=== PATIENT | female | born 1985 | race African-American/Black ===

== ENCOUNTER 2023-12-27 13:48 | Inpatient (IN) | payer MEDICAID, OTHER ==
[~2023-12-27] VITALS: Ht 160 cm; Wt 60.0 kg
[~2023-12-27 13:48] MED LIST: NOCURR
[2023-12-27 15:13] LABS: COVID AG,FIA SOURCE NASAL SWAB
[2023-12-27 15:20] LABS: BASOPHILS % (AUTO) 0.5 % (0.0-2.0); EOSINOPHILS % (AUTO) 1.1 % (1.0-6.0); HEMATOCRIT 37.3 % (36-46); HEMOGLOBIN 12.1 g/dL (12.0-16.0); LYMPHOCYTES # (AUTO) 1.5 K/uL (1.0-4.8); LYMPHOCYTES % (AUTO) 22.6 % (22.0-44.0); MEAN CORPUSCULAR HEMOGLOBIN 28.1 pg (26.0-34.0); MEAN CORPUSCULAR HGB CONC 32.5 G/dL (31.0-37.0); MEAN CORPUSCULAR VOLUME 87 fL (80-100); MONOCYTES # (AUTO) 0.3 K/uL (0.1-1.0); MONOCYTES % (AUTO) 5.3 % (2.0-9.0); NEUTROPHILS # (AUTO) 4.6 K/uL (1.8-7.7); NEUTROPHILS % (AUTO) 70.5 % (40.0-70.0); PLATELET COUNT (AUTO) 281 K/uL (150-450); RED BLOOD CELL COUNT(AUTO) 4.31 MIL/uL (4.00-5.20); WHITE BLOOD COUNT (AUTO) 6.6 K/uL (4.5-11.0)
[2023-12-27 15:30] LABS: ANION GAP 9 mmol/L (8-16); CARBON DIOXIDE 24 mmol/L (22-29); CHLORIDE 104 mmol/L (98-107); CREATININE 0.79 mg/dL (0.60-1.30); GLOMERULAR FILTR. RATE CALC > 60 mL/min (>60); GLUCOSE,RANDOM 101 mg/dL (70-110); POTASSIUM 3.8 mmol/L (3.5-5.1); SODIUM SERUM 137 mmol/L (136-145); UREA NITROGEN, BLOOD 11 mg/dL (7-18)
[2023-12-27 15:35] LABS: ALCOHOL, BLOOD (SERUM) < 3 mg/dL (0-10)
[2023-12-27 15:36] LABS: ALANINE AMINOTRANSFERASE 15 U/L (12-78); ALBUMIN 3.7 g/dL (3.4-5.0); ALKALINE PHOSPHATASE 56 U/L (46-116); ASPARTATE AMINOTRANSFERASE 15 U/L (15-37); TOTAL PROTEIN, SERUM 7.6 g/dL (6.4-8.2)
[2023-12-27 15:36] LABS: SARS-COV2 (COVID) ANTIGEN,FIA Negative (Negative)
[2023-12-27 16:22] LABS: BILIRUBIN,TOTAL 0.1 mg/dL (0.1-1.0)
[2023-12-27 23:25] LABS: ALCOHOL, URINE DRUG SCREEN NEGATIVE (NEGATIVE); AMPHET/METH SCREEN,URINE POSITIVE (NEGATIVE); BARBITURATE SCREEN, URINE NEGATIVE (NEGATIVE); BENZODIAZEPINES SCREEN,URINE NEGATIVE (NEGATIVE); CANNABINOID SCREEN,URINE NEGATIVE (NEGATIVE); COCAINE SCREEN,URINE POSITIVE (NEGATIVE); METHADONE SCREEN, URINE NEGATIVE (NEGATIVE); OPIATE SCREEN,URINE NEGATIVE (NEGATIVE); PHENCYCLIDINE SCREEN,URINE NEGATIVE (NEGATIVE)
[2023-12-28] MEDS: LORazepam 2 MG TABLET PO PRN (03:58)
[2023-12-28] MEDS ORDERED: MAGNESIUM HYDROXIDE SUSPENSION 30 ML UDCUP PO PRN (07:15)
[2023-12-28] MEDS ORDERED: ONDANSETRON HCL 4 MG TABLET PO PRN (07:15)
[2023-12-28] MEDS ORDERED: BACITRACIN 28 GM OINTMENT TP PRN (07:15)
[2023-12-28] MEDS ORDERED: LOPERAMIDE HCL 2 MG CAPSULE PO PRN (07:15)
[2023-12-28] MEDS ORDERED: CloNIDine HCL 0.1 MG TABLET PO PRN (07:15)
[2023-12-28] MEDS ORDERED: ACETAMINOPHEN 325 MG TABLET PO PRN (07:15)
[2023-12-28] MEDS ORDERED: IBUPROFEN 600 MG TABLET PO PRN (07:15)
[2023-12-28] MEDS ORDERED: PETROLATUM,WHITE 28 GM JELLY TP PRN (07:15)
[2023-12-28] MEDS ORDERED: ALBUTEROL SULFATE HFA 90 MCG/PUFF 8 GM INHALER IH PRN (07:15)
[2023-12-28] MEDS ORDERED: OMEPRAZOLE 20 MG CAPSULE PO PRN (07:15)
[2023-12-28] MEDS ORDERED: DOCUSATE SODIUM 100 MG CAPSULE PO PRN (07:15)
[2023-12-28] MEDS ORDERED: BENZOCAINE/MENTHOL LOZENGE PO PRN (07:15)
[2023-12-28] MEDS ORDERED: MAG HYDROX/ALUMINUM HYD/SIMETH ES 30 ML SUSPENSION UDCUP PO PRN (07:15)
[2023-12-28 08:20] VITALS: BP 116/73; PULSE 72; RESP 16; TEMP 97.8; O2SAT 98
[2023-12-28 12:52] VITALS: BP 116/73; PULSE 72; RESP 16; TEMP 97.3; O2SAT 98
[2023-12-28] MEDS: RisperiDONE 1 MG TABLET PO SCH (17:10)
[2023-12-28] MEDS: ZOLPIDEM TARTRATE 10 MG TABLET PO PRN (20:11)
[2023-12-28] MEDS: HALOPERIDOL 5 MG TABLET PO PRN (20:11)
[2023-12-28 20:13] VITALS: BP 109/69; PULSE 97; RESP 17; TEMP 98.7; O2SAT 97
[2023-12-29 08:24] VITALS: BP 101/55; PULSE 104; RESP 18; TEMP 97.7; O2SAT 98
[2023-12-29 20:38] VITALS: BP 108/68; PULSE 98; RESP 19; TEMP 97.6; O2SAT 99
[2023-12-30 08:13] VITALS: RESP 18
[2023-12-30 14:48] VITALS: BP 110/63
[2023-12-30] MEDS: NICOTINE 21 MG/24 HOUR PATCH TD SCH (16:17)
[2023-12-30 20:07] VITALS: BP 100/65; PULSE 111; RESP 18; TEMP 97.6; O2SAT 100
[2023-12-31 08:00] VITALS: BP 84/53; PULSE 100; RESP 15; TEMP 97.6; O2SAT 95
[2023-12-31] MEDS: NICOTINE 21 MG/24 HOUR PATCH TD SCH (08:13)
[2023-12-31 12:00] VITALS: BP 94/70
[2023-12-31 12:45] VITALS: BP 114/64; PULSE 100; RESP 18; TEMP 97; O2SAT 98
[2023-12-31] MEDS: QUEtiapine FUMARATE 300 MG TABLET PO SCH (20:05)
[2023-12-31 20:11] VITALS: BP 104/68; PULSE 106; RESP 17; TEMP 97.6; O2SAT 97
[2024-01-01 08:16] VITALS: BP 123/69; PULSE 96; RESP 16; TEMP 98; O2SAT 99
[2024-01-01] MEDS ORDERED: QUET300T2 PO (17:44)
== END 2024-01-01 18:45 | disposition home or self-care (01) | DRG 753 ==
LOC: EMS 13:48 → 3EC 12-28 01:46 → UNDOADMIN 12-28 01:46 → B3A 12-28 02:02
PROVIDERS: ADMIT Psychiatry & Neurology Psychiatry; ATTEND Psychiatry & Neurology Psychiatry
DX: F31.9 Bipolar disorder, unspecified (principal); F25.9 Schizoaffective disorder, unspecified; R45.851 Suicidal ideations; F19.10 Other psychoactive substance abuse, uncomplicated; G47.00 Insomnia, unspecified; Z20.822 Contact with and (suspected) exposure to COVID-19; K59.00 Constipation, unspecified; F41.9 Anxiety disorder, unspecified; Z87.891 Personal history of nicotine dependence
CPT/HCPCS: 80053; 80307; 84703; 85025; 99285; G0480